=== PATIENT | female | born 1965 | race Caucasian/White ===

== ENCOUNTER → 2019-05-25 | Outpatient (CLI) | payer BC ==
--- NOTE | 2019-05-29 08:00 | MM ---
Reason for exam: screening (asymptomatic). Last mammogram was performed 2 years and 10 months ago. History: Patient has history of high-risk lesion on a previous biopsy at age 46. Family history of premenopausal breast cancer in mother at age 34. Cancelled Right Needle Localization of the right breast, December 03, 2013. Cancelled Right Mammotome of the right breast, November 27, 2013. High risk right breast needle localzation of the right breast, June 07, 2011. High risk US right guided VAD of the right breast, May 13, 2011. Took hormonal contraceptives for 5 years. Physical Findings: A clinical breast exam by your physician is recommended on an annual basis and results should be correlated with mammographic findings. MG 3D Screening Mammo W/Cad Bilateral CC and MLO view(s) were taken. Prior study comparison: July 14, 2016, bilateral MG 3d diag mammo w/cad BIBI. July 08, 2015, bilateral MG diagnostic mammo w CAD BIBI. The breast tissue is heterogeneously dense. This may lower the sensitivity of mammography. Post excisional changes right breast. No significant changes when compared with prior studies. ASSESSMENT: Benign, BI-RAD 2 RECOMMENDATION: Routine screening mammogram of both breasts in 1 year.
== END | disposition home or self-care (01) ==
LOC: RADMAMWWP 13:17
PROVIDERS: ATTEND Family Medicine
DX: Z12.31 Encounter for screening mammogram for malignant neoplasm of breast (principal)
CPT/HCPCS: 77063; 77067

== ENCOUNTER → 2021-01-06 | Outpatient (CLI) | payer BC ==
--- NOTE | 2021-01-07 10:00 | MM ---
Reason for exam: screening (asymptomatic). Last mammogram was performed 1 year and 7 months ago. History: Patient has history of high-risk lesion on a previous biopsy at age 46. Family history of premenopausal breast cancer in mother at age 34. Cancelled Right Needle Localization of the right breast, December 03, 2013. Cancelled Right Mammotome of the right breast, November 27, 2013. High risk right breast needle localzation of the right breast, June 07, 2011. High risk US right guided VAD of the right breast, May 13, 2011. Took hormonal contraceptives for 5 years. Physical Findings: A clinical breast exam by your physician is recommended on an annual basis and results should be correlated with mammographic findings. MG 3D Screening Mammo W/Cad Bilateral CC and MLO view(s) were taken. Prior study comparison: May 25, 2019, bilateral MG 3d screening mammo w/cad. July 14, 2016, bilateral MG 3d diag mammo w/cad BIBI. The breast tissue is heterogeneously dense. This may lower the sensitivity of mammography. There is no discrete abnormality. No significant changes when compared with prior studies. ASSESSMENT: Negative, BI-RAD 1 RECOMMENDATION: Routine screening mammogram of both breasts in 1 year.
== END ==
LOC: RADMAMWWP 09:52
PROVIDERS: ATTEND Family Medicine
DX: Z12.31 Encounter for screening mammogram for malignant neoplasm of breast (principal)
CPT/HCPCS: 77063; 77067

== ENCOUNTER → 2022-06-17 | Outpatient (CLI) | payer BC ==
--- NOTE | 2022-06-20 17:58 | MM ---
Reason for Exam: Screening (asymptomatic). Last mammogram was performed 1 year(s) and 5 month(s) ago. Patient History: Menarche at age 12. First Full-Term at age 27. Patient used Hormonal Contraceptives for 5 years. 06/07/2011, High risk Excisional Biopsy on the right side. 05/13/2011, High risk Core Biopsy on the right side. 12/03/2013, Cancelled Right Needle Localization on the right side. 11/27/2013, Cancelled Right Mammotome on the right side. Mother had breast cancer, age 34. Risk Values: Tena 5 year model risk: 3.8%. NCI Lifetime model risk: 21.4%. Prior Study Comparison: 07/14/2016 Bilateral Diagnostic Mammogram, [facility]. 05/25/2019 Bilateral Screening Mammogram, [facility]. 01/06/2021 Bilateral Screening Mammogram, [facility]. Tissue Density: There are scattered fibroglandular densities. Findings: Analyzed By CAD. Stable postexcisional changes right breast. Unchanged small grouped punctate microcalcifications right breast. No significant change from prior exams. Overall Assessment: Benign, BI-RAD 2 Management: Screening Mammogram of both breasts in 1 year. 1. We note that the patient has greater than 20% lifetime risk for degenerative development of breast cancer. Patient may qualify for alternating screening mammogram and screening breast MRI at 6 month intervals. 2. Patient should continue monthly self breast exams. A clinical breast exam by your physician is recommended on an annual basis. 3. This exam should not preclude additional follow-up of suspicious palpable abnormalities. Electronically signed and approved by: Frankie Rich M.D. Radiologist
== END | disposition home or self-care (01) ==
LOC: RADMAMWWP 17:02
PROVIDERS: ATTEND Family Medicine
DX: Z12.31 Encounter for screening mammogram for malignant neoplasm of breast (principal)
CPT/HCPCS: 77063; 77067

== ENCOUNTER → 2023-08-26 | Outpatient (CLI) | payer BC ==
--- NOTE | 2023-08-29 08:59 | MM ---
Reason for Exam: Screening (asymptomatic). Last mammogram was performed 1 year(s) and 3 month(s) ago. Patient History: Menarche at age 12. First Full-Term at age 27. Postmenopausal. Patient has history of breast feeding. Patient used Hormonal Contraceptives for 5 years. 06/07/2011, High risk Excisional Biopsy on the right side. 05/13/2011, High risk Core Biopsy on the right side. 12/03/2013, Cancelled Right Needle Localization on the right side. 11/27/2013, Cancelled Right Mammotome on the right side. Mother had breast cancer, age 34. Risk Values: Tena 5 year model risk: 3.9%. NCI Lifetime model risk: 21.0%. Prior Study Comparison: 05/25/2019 Bilateral Screening Mammogram, [facility]. 01/06/2021 Bilateral Screening Mammogram, [facility]. 06/17/2022 Bilateral MG 3D screening mammo w/cad, [facility]. Tissue Density: The breast tissue is heterogeneously dense. This may lower the sensitivity of mammography. Findings: Analyzed By CAD. There is no suspicious group of microcalcifications or new suspicious mass in either breast. Stable post excisional changes of the right breast. Unchanged small grouped punctate microcalcifications within the right breast. No significant change from prior exams. Overall Assessment: Benign, BI-RAD 2 Management: Screening Mammogram of both breasts in 1 year. A clinical breast exam by your physician is recommended on an annual basis and results should be correlated with mammographic findings. Note on Tena scores and lifetime risk: 1. A Tena score greater than 3% is considered moderate risk. If this is the case, consider specialist referral to assess eligibility for a risk reducing agent. If overall lifetime risk for the development of breast cancer is 20% or higher, the patient may qualify for future screening with alternating mammogram and breast MRI. Electronically signed and approved by: Gallo Coats D.O.
== END | disposition home or self-care (01) ==
LOC: RADMAMWWP 09:01
PROVIDERS: ATTEND Family Medicine
DX: Z12.31 Encounter for screening mammogram for malignant neoplasm of breast (principal); Z78.0 Asymptomatic menopausal state; Z80.3 Family history of malignant neoplasm of breast
CPT/HCPCS: 77063; 77067

== ENCOUNTER → 2024-09-04 | Outpatient (CLI) | payer BC ==
--- NOTE | 2024-09-04 12:18 | MM ---
Reason for Exam: Screening (asymptomatic). Last screening mammogram was performed 12 month(s) ago. Patient History: Menarche at age 12. First Full-Term at age 27. Postmenopausal. Patient has history of breast feeding. Patient used Hormonal Contraceptives for 5 years. 06/07/2011, High risk Excisional Biopsy on the right side. 05/13/2011, High risk Core Biopsy on the right side. 12/03/2013, Cancelled Right Needle Localization on the right side. 11/27/2013, Cancelled Right Mammotome on the right side. Mother had breast cancer, age 34. Mother had breast cancer at or over age 50. Risk Values: Tena 5 year model risk: 4.1%. NCI Lifetime model risk: 20.6%. Prior Study Comparison: 07/14/2016 Bilateral Diagnostic Mammogram, [facility]. 05/25/2019 Bilateral Screening Mammogram, [facility]. 01/06/2021 Bilateral Screening Mammogram, [facility]. 06/17/2022 Bilateral MG 3D screening mammo w/cad, [facility]. 08/26/2023 Bilateral MG 3D screening mammo w/cad, [facility]. Tissue Density: The breasts are heterogeneously dense, which may obscure small masses. Findings: Analyzed By CAD. There is no suspicious group of microcalcifications or new suspicious mass in either breast. Overall Assessment: Benign, BI-RAD 2 Management: Screening Mammogram of both breasts in 1 year. . Patient should continue monthly self-breast exams. A clinical breast exam by your physician is recommended on an annual basis. This exam should not preclude additional follow-up of suspicious palpable abnormalities. Note on Tena scores and lifetime risk: 1. A Tena score greater than 3% is considered moderate risk. If this is the case, consider specialist referral to assess eligibility for a risk reducing agent. 2. If overall lifetime risk for the development of breast cancer is 20% or higher, the patient may qualify for future screening with alternating mammogram and breast MRI. [facility], , 09/04/2024 12:15 PM. Electronically signed and approved by: Arvind Galeano M.D. Radiologis
== END ==
LOC: RADMAMWWP 08:20
PROVIDERS: ATTEND Family Medicine
CPT/HCPCS: 77063; 77067